=== PATIENT | female | born 1975 | race Caucasian/White ===

== ENCOUNTER → 2020-07-26 17:35 | Outpatient (CLI) | payer SELFPAY | PROVIDERS: Visit Provider Nurse Practitioner Obstetrics & Gynecology | DX: Z34.90 Encounter for supervision of normal pregnancy, unspecified, unspecified trimester (principal) | CPT/HCPCS: 86403 ==

== ENCOUNTER 2020-08-04 10:23 | Inpatient (IN) | payer SELFPAY ==
[2020-08-04] VITALS (9 sets, daily range): BP systolic 120–166; BP diastolic 74–89; PULSE 58–82; RESP 12–18; TEMP 36.3–36.9; O2SAT 78–100; BMI 28.0
[2020-08-04 11:21] LABS: Basophils % 0.1 % (0.1-2.0); Eosinophils % 0.6 % (0.1-12.0); Hematocrit 30.8 % (37.0-47.0); Hemoglobin 10.9 g/dL (12.2-16.2); Lymphocytes # 1.1 K/mm3 (0.7-4.5); Lymphocytes % 16.2 % (10-50); Mean Corpuscular HGB Conc 35.3 g/dL (31.8-35.4); Mean Corpuscular Hemoglobin 28.5 pg (27.0-31.2); Mean Corpuscular Volume 80.7 fl (81-99); Mean Platelet Volume 8.8 fl (7.4-10.4); Monocytes # 0.3 K/mm3 (0.1-1.0); Neutrophils # 5.2 K/mm3 (1.8-7.8); Neutrophils % 78.1 % (37.0-80.0); Platelet Count 174 K/mm3 (142-424); Red Blood Count 3.82 M/mm3 (4.20-5.40); Red Cell Distribution Width 14.9 % (11.5-17.5); White Blood Count 6.7 K/mm3 (4.8-10.8)
[2020-08-04 12:06] LABS: Coronavirus 19 IgG Antibody Positive (Negative); Coronavirus 19 IgM Antibody Negative (Negative)
--- NOTE | 2020-08-04 13:19 | HMH.PHAINT ---
MEDICATION RECONCILIATION COMPLETED ON PATIENT BY USING EXTERNAL FILL HISTORY FROM PHARMACY. -MARCIA HOLLAND, RAHATD
--- NOTE | 2020-08-04 13:21 | HMH.OPNOTE ---
Date of procedure: 08/04/20 Pre-op Diagnosis:: Term , chronic hypertension, previous section, previous history of uterine atony and hemorrhage, grand multiparity, advanced maternal age Post-op Diagnosis:: Term , chronic hypertension, previous section, history of uterine atony and hemorrhage, grand multiparity, advanced maternal age Procedure performed:: Repeat lower segment transverse section, B-ramsey suture Surgeon:: Mitchell Munoz MD Controller Operations And Hr Manager(s):: Deepa Villalba DATA GOVERNANCE ANALYST:: Other (Mark Esquivel) Anesthesia: spinal Estimated blood loss (mL): 600 Clinical Note:: She is 45-year-old 17 para 14 aborta 2 who was 37 and 1 weeks gestational age. She was having contractions yesterday and was seen in my office. Her blood pressure remained elevated despite being on nifedipine XL. She has had a previous section the was complicated by uterine atony and severe hemorrhage. She received 7 units of blood . After having discussed the risks and benefits she elected to have a repeat lower segment transverse section at term. Operative findings:: She delivered a liveborn male child at 12:50 PM on the afternoon of August 04, 2020. Baby had Apgars of 8 at 1 minute and 9 at 5 minutes. The lower uterine segment was extremely thin and there was just a thin layer of scar tissue overlying the amnion. The ovaries and tubes appeared normal. Operative note:: She was taken to the operating room where spinal anesthesia was found be adequate. She was prepped and draped in normal sterile fashion in the supine position with a leftward tilt. A Castañeda catheter was in the bladder. A Pfannenstiel skin incision was made with knife then carried through to the underlying layer of fascia with cautery. The fascia was opened in the midline with cautery and extended laterally using Kaufman scissors. Teresa clamps were applied to the superior aspect of the fascial incision which was tented up and the underlying rectus muscles dissected off using cautery. The Mathis clamps were then applied to the inferior aspect of the fascial incision which in a similar fashion was tented up and the underlying rectus muscles dissected off using cautery. The rectus muscles were then in the midline, the peritoneum identified, and entered sharply with Metzenbaum scissors. This incision was then extended superiorly and inferiorly with cautery. We had good visualization of the bladder inferiorly. The bladder peritoneum was then opened in the midline and extended laterally using Metzenbaum scissors. A bladder flap was created digitally. Transverse incision was made through the uterine muscle to the amnion. This incision was then extended laterally using fingers traction. The amnion was entered sharply with knife. There was clear amniotic fluid. The infant's head was then delivered atraumatically. This was followed by the anterior shoulder and the rest of the 's body atraumatically. The oropharynx and nasopharynx were bulb suctioned. The infant was then handed off to Dr. Funez who assigned Apgars of 8 at 1 minute and 9 at 5 minutes. Using gentle traction on the cord and countertraction on the fundus I was able to easily deliver the placenta intact. It had a normal three-vessel cord. The uterus was then cleared of clots and debris . The uterus was then exteriorized and the abdominal cavity. The uterine incision was then closed using running 0 Vicryl suture in a locked fashion. A second layer of the same suture was used to imbricate the first layer. The bladder peritoneum was then closed using running 2-0 Vicryl suture in a locked fashion. She had a history of uterine atony and was a grand multipara so we elected perform a B. Ramsey suture. Using #1 Vicryl suture I took a large bite anteriorly and then went over the top of the uterus. I took 2 bites posteriorly and then came back over the top of the uteru
--- NOTE | 2020-08-04 13:41 | HMH.ANESCL ---
[facility] Anesthesia Checklist - Structural Data Admitted From: Home Planned Operative Procedure/s: Consent for Planned Operative Procedure(s) Verified: Yes Verified Documents: Surgical Consent, History and Physical - NPO Status Verified Time NPO: 00:00 - Airway Assessment C-Spine Mobility Assessed: Yes TMJ Mobility Assessed: Yes Dentition: Good Dentition - Neurological Assessment Level of Consciousness: Awake, Alert - Anesthesia Plan Anesthesia Risk discussed: Yes Anesthesia Plan: Verified ASA Class: II Anesthesia Type: Spinal [facility] History *Have you ever received a pneumonia vaccine?: No *Have you received a flu vaccine this season?: No Anesthesia experience/problems:: None Other Surgeries: Yes: - *Social History Smoking Status: Never smoker Alcohol Intake: never Alcohol Intake Frequency:: other Substance Use Type: denies use *Occupational Status:: unemployed *Travel in the last 8 weeks: None Family Hx:: No significant family history Para: 13
--- NOTE | 2020-08-04 13:43 | P.PN_ITS ---
[facility] Anesthesia Record Part I Intake, IV Amount: 1,800 Estimated blood loss (mL): 600 Urine output (mL): 200 Blood Products used (#): none Blood Pressure: 120/74 SaO2: 78 Pulse Rate: 78 Respiratory Rate: 12 Temperature: 98.2 F Patient is:: Awake, Stable Stable to PACU at:: 13:30
--- NOTE | 2020-08-04 13:44 | P.CONPHA_ITS ---
[facility] Pharmacy VTE Monitoring - Patient Demographics Admission date: 08/04/20 Report Date: 08/04/20 Time: 13:45 Allergies/Adverse Reactions: Patient Allergies No Known Allergies Allergy (Verified 08/03/20 16:41) Height: 1.68 m Weight: 78.925 kg - VTE Risk Labs: VTE Related Lab Results Hgb 10.9 g/dL (12.2-16.2) L 08/04/20 11:00 Hct 30.8 % (37.0-47.0) L 08/04/20 11:00 Plt Count 174 K/mm3 (142-424) 08/04/20 11:00 - Prophylaxis VTE Prophylaxis Ordered?: Yes Types of VTE Prophylaxis: IPCS Thigh High Location of Applied Device: Bilateral Lower Extremeties
[2020-08-04 13:53] LABS: Microscopic,Cath URINE MICROSCOPIC (MICROSCOPIC)
[2020-08-04 13:55] LABS: Appearance,Urine/Cath CLEAR (Clear); Bilirubin,Cath Negative (Negative); Blood, Urine/Cath TRACE-I (Negative); Color,Urine/Cath YELLOW (Yellow); Glucose,Urine/Cath (UA) Negative (Negative); Ketones,Urine/Cath 3+ (Negative); Leukocyte Esterase,Cath Negative (Negative); Nitrate,Cath Negative (Negative); Protein,Urine/Cath Negative (Negative); Specific Gravity, Urine/Cath 1.015 (1.005-1.030); Urobilinogen,Cath 0.2 EU/dl (0.2)
[2020-08-04 14:11] LABS: RBC,Urine/Cath Occasional # /hpf (0-3); Squamous Epithelial Ur./Cath Occasional #/hpf (0-5)
[2020-08-05 00:11] VITALS: BP 129/82; PULSE 74; RESP 18; TEMP 36.7; O2SAT 100
[2020-08-05 04:14] VITALS: BP 132/84; PULSE 78; RESP 18; TEMP 36.6; O2SAT 97
[2020-08-05 07:40] LABS: Hematocrit 31.2 % (37.0-47.0); Hemoglobin 10.4 g/dL (12.2-16.2)
[2020-08-05 08:00] VITALS: BP 118/75; PULSE 77; RESP 20; TEMP 36.7; O2SAT 99
--- NOTE | 2020-08-05 08:52 | HMH.OBAPHP ---
OB - H&P: HPI Antepartum - History of Present Illness Chief complaint: Increased blood pressure, grand multiparity, previous section, con History of present illness: She is a 45-year-old 17 para 14 who is 37 and 5 weeks gestational age. She has had a previous section for twins and at the time of her twins delivery she had a severe hemorrhage requiring 7 units of blood. She would like to go ahead with a repeat lower segment transverse section and we discussed doing a B. Ramsey suture to prevent hemorrhage after her section. She also has had increased blood pressure and we have had to increase her blood pressure medicine from 30 mg of nifedipine to 60 mg of nifedipine daily. Her blood pressures have stabilized. We will plan to go ahead with a repeat lower segment transverse section because of her increased blood pressure and the fact that she is a grand multipara and has been having some contractions. - History of Present Criteria for establishing EDC:: based on LMP only care: limited care Ultrasounds: other Obstetrical complications: gestational hypertension Medical complications: none - Labs Blood type: other (She has Rh- blood) Rubella: unknown RPR/VDRL: unknown GBS status: negative HBsAG: unknown H History I have reviewed the patient's past medical history: Yes *Have you ever received a pneumonia vaccine?: No *Have you received a flu vaccine this season?: No Anesthesia experience/problems:: None Other Surgeries: Yes: - *Social History Smoking Status: Never smoker Alcohol Intake: never Alcohol Intake Frequency:: other Substance Use Type: denies use *Occupational Status:: unemployed *Travel in the last 8 weeks: None Family Hx:: No significant family history Para: 13 Review of Systems - Review of Systems Review of systems:: pertinent systems reviewed and negative unless documented below Meds Home Medications Medication Instructions Recorded Confirmed Type NIFEdipine [Nifedipine ER] 30 mg PO DAILY 08/04/20 08/04/20 History Allergies Allergy/AdvReac Type Severity Reaction Status Date / Time No Known Allergies Allergy Verified 08/03/20 16:41 OB - H&P: Exam - Physical Exam Vital signs: Temp Pulse Resp BP Pulse Ox 98.0 F 77 20 118/75 99 08/05/20 08:00 08/05/20 08:00 08/05/20 08:00 08/05/20 08:00 08/05/20 08:00 - Constitutional no acute distress - Routine HEENT Exam Head: Present: normocephalic Eye: Present: EOMI, PERRL ENT: Present: mucous membranes moist - Routine Neck Exam Present: supple, full ROM - Routine Respiratory Exam Absent: accessory muscle use (good air entry bilaterally), respiratory distress, wheezes, crackles - Routine Cardiovascular Exam Present: RRR. Absent: murmur - Routine Abdominal Exam Present: soft, normoactive bowel sounds. Absent: tenderness, distended, guarding - Routine Rectal Exam Patient deferred: visual exam, digital exam - Routine Exam Patient deferred: external exam, groin exam, perineal exam - Routine Extremities Exam Present: full ROM. Absent: cyanosis, edema - Routine Skin Exam Present: intact. Absent: cyanosis - Routine Neurological Exam Present: alert, oriented X3 - Routine Psychiatric Exam Present: normal affect OB - Results - Labs Labs: Short CBC 08/04/20 08/05/20 Range/Units 11:00 06:42 WBC 6.7 (4.8-10.8) K/mm3 Hgb 10.9 L 10.4 L (12.2-16.2) g/dL Hct 30.8 L 31.2 L (37.0-47.0) % Plt Count 174 (142-424) K/mm3 Urine 08/04/20 Range/Units 12:40 Urine Color Yellow (Yellow) Urine Appearance Clear (Clear) Urine pH 6.0 (5.0-8.5) Ur Specific [place] 1.015 (1.005-1.030) Urine Protein Negative (Negative) Urine Glucose (UA) Negative (Negative) OB - A/P Antepartum (1) Previous section Status: Acute (2) d
--- NOTE | 2020-08-05 08:57 | HMH.OBDCSM ---
General - General Admission date:: 08/04/20 Discharge date: 08/05/20 HPI - History of Present Illness History of present illness: She is a 45-year-old 17 now para 15 who is had a previous section. She had twins in her last and ended up having severe hemorrhage requiring 7 units of blood after her last . She wanted to have a controlled situation again this time with section. We discussed a B. Ramsey suture at the time of her section to prevent hemorrhage. She also has had increased blood pressure and she was started on nifedipine 30 mg XL. Hospital Course Hospital Course: On August 04, 2020 she underwent a repeat lower segment transverse section and delivered a liveborn male child at 12:50 PM. The baby weighed 7 pounds 6 ounces and had Apgars of 8 at 1 minute and 9 at 5 minutes. At the time of her section we did a B. Ramsey suture to prevent hemorrhage. She has done well and has remained afebrile with her hospitalization. Preoperatively her hemoglobin was 10.9 and postoperatively it is 10.5. Her pain is well controlled. She is taking ibuprofen and oxycodone. She would like to go home today. Her blood pressure was slightly elevated while hospitalized and I increased her nifedipine from 30 mg to 60 mg XL. Her blood pressures have stabilized with this dosage. She has Rh- blood and will receive RhoGam today. She is discharged home today. She will continue with Percocet 5/325 every 6 hours as needed for pain. She was given a prescription for 20 tablets. She will take ibuprofen as well. She will continue with vitamins and iron. She was given the usual instructions with respect to limiting her activity, driving and sexual activity. Her condition on discharge is stable and improved. Objective Vital signs: Temp Pulse Resp BP Pulse Ox 98.0 F 77 20 118/75 99 08/05/20 08:00 08/05/20 08:00 08/05/20 08:00 08/05/20 08:00 08/05/20 08:00 no acute distress - *Routine HEENT Exam Head: Present: normocephalic Eye: Present: EOMI, PERRL ENT: Present: mucous membranes moist Results Labs on day of discharge: Labs from last 24 hours 08/05/20 08/05/20 08/04/20 06:42 06:42 12:40 WBC RBC Hgb 10.4 L Hct 31.2 L MCV MCH MCHC RDW Plt Count MPV Neut % (Auto) Lymph % (Auto) [place] % (Auto) Eos % (Auto) Baso % (Auto) Neut # (Auto) Lymph # (Auto) [place] # (Auto) Eos # (Auto) Baso # (Auto) Urine Color Yellow Urine Appearance Clear Urine pH 6.0 Ur Specific [place] 1.015 Urine Protein Negative Urine Glucose (UA) Negative Urine Ketones 3+ Urine Blood Trace-i Urine Nitrate Negative Urine Bilirubin Negative Urine Urobilinogen 0.2 Ur Leukocyte Esterase Negative Urine RBC Occasional Urine WBC 3-5 Ur Squamous Epith Cells Occasional Urine Bacteria None SARS-CoV-2 IgG Ab (Rapid) SARS-CoV-2 IgM Ab (Rapid) Blood Type Pending Antibody Screen Pending Antibody Identification Screen Pending Baby's Rh Status Pending 08/04/20 08/04/20 08/04/20 11:00 11:00 11:00 WBC RBC Hgb Hct MCV MCH MCHC RDW Plt Count MPV Neut % (Auto) Lymph % (Auto) [place] % (Auto) Eos % (Auto) Baso % (Auto) Neut # (Auto) Lymph # (Auto) [place] # (Auto) Eos # (Auto) Baso # (Auto) Urine Color Urine Appearance Urine pH Ur Specific [place] Urine Protein Urine Glucose (UA) Urine Ketones Urine Blood Urine Nitrate Urine Bilirubin Urine Urobilinogen Ur Leukocyte Esterase Urine RBC Urine WBC Ur Squamous Epith Cells Urine Bacteria SARS-CoV-2 IgG Ab (Rapid) Positive A SARS-CoV-2 IgM Ab (Rapid) Negative Blood Type A Negative Antibody Screen Positive Antibo
--- NOTE | 2020-08-08 07:39 | P.PN_ITS ---
[facility] Anesthesia Record Part II Discharge Time: 14:10 Destination: Obstetric PACU nurse assessment reviewed?: Yes Patient Condition:: Good Anesthesia Complications:: None Swallowing reflex intact?: Yes Cyanosis?: No Blood Pressure: 155/86 Pulse Rate: 61 Temperature: 97.3 F Mental Status: Alert & Oriented Pain level:: 0 Nausea and/or vomitting:: None (0) Intake, IV Amount: 0
[2020-08-08 07:41] VITALS: BP 155/86; PULSE 61; TEMP 36.3
== END 2020-08-05 10:38 | disposition home or self-care (01) | DRG 788 ==
PROVIDERS: Admitting Provider Nurse Practitioner Obstetrics & Gynecology; Visit Provider Nurse Practitioner Obstetrics & Gynecology
PROC: 10D00Z1 Extraction of Products of Conception, Low, Open Approach (ICD-10-PCS; CPT 59514; principal; 2020-08-04 12:30)
DX: O10.02 Pre-existing essential hypertension complicating childbirth (principal); Z3A.37 37 weeks gestation of pregnancy; Z37.0 Single live birth; O34.211 Maternal care for low transverse scar from previous cesarean delivery; N85.8 Other specified noninflammatory disorders of uterus
CPT/HCPCS: 59514; 36415; 59025; 81001; 85014; 85018; 85025; 85461; 86328; 86850; 86870; 94761; G0283; J2790

== ENCOUNTER 2022-05-15 16:56 | Outpatient (CLI) | payer SELFPAY ==
[2022-05-15 17:47] VITALS: BP 160/99; PULSE 87; RESP 17; TEMP 36.6; O2SAT 97; BMI 27.7
== END 2022-05-15 17:34 | disposition home or self-care (01) ==
LOC: OBOUT 16:58 → OB 17:03 → OBOUT 18:01
PROVIDERS: PCP Nurse Practitioner Family; Visit Provider Nurse Practitioner Obstetrics & Gynecology
DX: O26.893 Other specified pregnancy related conditions, third trimester (principal); Z3A.35 35 weeks gestation of pregnancy
CPT/HCPCS: 96372; G0463

== ENCOUNTER 2022-05-16 16:57 | Outpatient (CLI) | payer SELFPAY | END 2022-05-16 17:23 | disposition home or self-care (01) | LOC: OBOUT 16:57 → OB 16:58 | PROVIDERS: PCP Nurse Practitioner Family; Visit Provider Nurse Practitioner Obstetrics & Gynecology | DX: O26.893 Other specified pregnancy related conditions, third trimester (principal); Z3A.35 35 weeks gestation of pregnancy | CPT/HCPCS: 96372 ==

== ENCOUNTER 2022-05-21 11:55 | Inpatient (IN) | payer SELFPAY ==
[2022-05-21] VITALS (24 sets, daily range): BP systolic 133–187; BP diastolic 79–100; PULSE 57–73; RESP 16–18; TEMP 36.3–36.7; O2SAT 95–99; BMI 27.2
[2022-05-21 13:11] LABS: Coronavirus 19, PCR Not Detected (NotDetected); Influenza A, PCR Not Detected (NotDetected); Influenza B, PCR Not Detected (NotDetected)
[2022-05-21 13:12] LABS: Basophils % 0.5 % (0.1-2.0); Eosinophils # 0.1 K/mm3 (0.0-0.4); Eosinophils % 1.1 % (0.1-12.0); Hematocrit 31.8 % (37.0-47.0); Hemoglobin 10.9 g/dL (12.2-16.2); Lymphocytes # 0.8 K/mm3 (0.7-4.5); Lymphocytes % 12.8 % (10-50); Mean Corpuscular HGB Conc 34.2 g/dL (31.8-35.4); Mean Corpuscular Hemoglobin 28.4 pg (27.0-31.2); Mean Platelet Volume 8.8 fl (7.4-10.4); Monocytes # 0.4 K/mm3 (0.1-1.0); Monocytes % 5.7 % (1.7-9.3); Neutrophils % 79.9 % (37.0-80.0); Platelet Count 226 K/mm3 (142-424); Red Blood Count 3.83 M/mm3 (4.20-5.40); Red Cell Distribution Width 14.5 % (11.5-17.5); White Blood Count 6.2 K/mm3 (4.8-10.8)
[2022-05-21 13:24] LABS: Anion Gap 10.5 mEq/L (5-15); Blood Urea Nitrogen 8 mg/dl (7-17); Calcium 8.4 mg/dl (8.4-10.2); Carbon Dioxide 20 mmol/L (22.0-30.0); Chloride 106 mmol/L (98-107); Creatinine Clearance Estimated 172 mL/min (50-200); Estimated Glomerular Filt Rate 133 ml/min (>60); GFR (African American) 161 ML/MIN (>60); Glucose 73 mg/dl (74-100); Potassium 3.5 mmoL/L (3.5-5.1); Sodium 133 mmol/L (136-145)
[2022-05-21 13:29] LABS: Magnesium 1.4 mg/dl (1.6-2.3)
--- NOTE | 2022-05-21 13:37 | EXP.HP ---
History of Present Illness *Admission Date: 05/21/22 *Reason for visit:: Severe PIH, chronic hypertension, grand multiparity, AMA *History of present illness: She is a 47-year-old 17 para 15 who has increased blood pressure throughout the last few weeks. I had started her on labetalol and gradually increased her dosage from 200 twice daily to 200 mg 3 times daily. She continues to have blood pressures in the 170/100 range. She feels a little jittery she says but otherwise no headache or scotomata. No epigastric pain. She has had previous hypertension in her last 2 pregnancies. Last was delivered at 37 weeks. She has had a C-sections in the past and is scheduled for another . Given the fact that her blood pressure is severely elevated today, we will go ahead and admit her and perform a later on this afternoon. [facility] Disclaimer: The information contained in this section may have been updated after the patient was seen, as this information can be updated by other users. Social History Smoking Status: Never smoker alcohol intake: never substance use type: denies use current occupational status: unemployed Travel in the last 8 weeks: None Review of Systems Review of Systems Review of systems:: pertinent systems reviewed and negative unless documented below Meds Home Medications and Allergies Home Medications Medication Instructions Recorded Confirmed Type labetalol 200 mg tablet 200 mg PO TID 05/21/22 History New Prescriptions to Start Prescriptions: Allergies Allergy/AdvReac Type Severity Reaction Status Date / Time No Known Allergies Allergy Verified 05/21/22 11:15 Exam Data for Last 24 hours Vital signs and Labs for Last 24 Hours: Laboratory Results - last 24 hr 05/21/22 12:49: SARS-CoV-2 (PCR) Not detected, Influenza A Untype (PCR) Not detected, Influenza Type B (PCR) Not detected 05/21/22 12:55: WBC 6.2, RBC 3.83 L, Hgb 10.9 L, Hct 31.8 L, MCV 83.0, MCH 28.4, MCHC 34.2, RDW 14.5, Plt Count 226, MPV 8.8, Neut % (Auto) 79.9, Lymph % (Auto) 12.8, [place] % (Auto) 5.7, Eos % (Auto) 1.1, Baso % (Auto) 0.5, Neut # (Auto) 5.0, Lymph # (Auto) 0.8, [place] # (Auto) 0.4, Eos # (Auto) 0.1, Baso # (Auto) 0.0 05/21/22 12:55: Crossmatch (AHG) See Detail 05/21/22 12:55: Sodium 133 L, Potassium 3.5, Chloride 106, Carbon Dioxide 20 L, Anion Gap 10.5, BUN 8, Creatinine 0.50 L, Estimated Creat Clear 172, Estimated GFR 133, Est GFR ( Amer) 161, Glucose 73 L, Calcium 8.4 05/21/22 12:55: Magnesium 1.4 L I & O for Last 24 hours: Intake & Output 05/19/22 05/20/22 05/21/22 05/22/22 11:59 11:59 11:59 11:59 Weight 169 lb Constitutional Constitutional: no acute distress *Routine HEENT Exam Head: Present normocephalic Eye: Present EOMI and PERRL ENT: Present mucous membranes moist *Routine Neck Exam Neck: Present supple; Absent lymphadenopathy *Routine Respiratory Exam Respiratory: Present CTA bilaterally *Routine Cardiovascular Exam Cardiovascular: Present RRR *Routine Abdominal Exam Abdominal: Present soft and normoactive bowel sounds; Absent tenderness *Routine Rectal Exam Rectal:: deferred *Routine Genitalia Exam Genitalia:: deferred *Routine Extremities Exam Extremities: Absent cyanosis, clubbing or edema *Routine Skin Exam Skin: Present warm; Absent rash *Routine Neurological Exam Neurological: Present alert and oriented X3 Assessment and Plan *Assessment and plan (1) Advanced maternal age in multigravida: Status: Acute Category: Medical Code(s): O09.529 - Supervision of elderly multigravida, unspecified trimester (2) Previous section: Status: Acute Category: Surgical Code(s): Z98.891 - History of uterine scar from previous surgery (3) Grand multiparity: Status: Acute Category: Medical Code(s): Z64.1 - Problems related to multipa
[2022-05-21 14:51] LABS: Alanine Aminotransferase 14 U/L (12-78); Aspartate Amino Transferase 24 U/L (14-36); Uric Acid 6.6 mg/dl (2.5-6.2)
[2022-05-21 15:05] LABS: Fibrinogen 383 mg/dL (229.9-363.5); Prothrombin Time 9.8 seconds (10.1-12.5)
[2022-05-21 15:06] LABS: D-Dimer 1.14 ug/mL (0.0-0.5)
--- NOTE | 2022-05-21 15:36 | P.PN_ITS ---
[facility] Disclaimer: The information contained in this section may have been updated after the patient was seen, as this information can be updated by other users. Social History Smoking Status: Never smoker alcohol intake: never substance use type: denies use current occupational status: unemployed Travel in the last 8 weeks: None [facility] Anesthesia Checklist Patient Identification Patient Identification: Arm Band and Verbal (Name & ) Structural Data Admitted From: Inpatient Planned Operative Procedure/s: C section Verified Documents: Surgical Consent NPO Status Verified Time NPO: 10:00 Chart Verification Results Verified: CBC Airway Assessment C-Spine Mobility Assessed: Yes TMJ Mobility Assessed: Yes Dentition: Good Dentition Neurological Assessment Level of Consciousness: Awake, Alert and Appropriate Anesthesia Plan ASA Class: III Anesthesia Type: Spinal
[2022-05-21 16:24] LABS: Cord Blood PH 7.37 (7.35-7.45)
--- NOTE | 2022-05-21 16:49 | EXP.OP.NOTE ---
Date of procedure: 05/21/22 Pre-op Diagnosis:: Previous section, history of uterine atony, advanced maternal age, severe -induced hypertension, grand multiparity Post-op Diagnosis:: Previous section, history of uterine atony, advanced maternal age, severe -induced hypertension, grand multiparity Procedure performed:: Repeat lower segment transverse section, B-ahumada suture Surgeon:: Mitchell Munoz MD Radiation Technician(s):: Dr. Whitehead FIELD MACHINIST:: Mikey Mead Anesthesia: spinal Estimated blood loss (mL): 500 Clinical Note:: She is a 47-year-old 17 para 14 who was 36 and 3 weeks gestational age. She has had increasing blood pressure. I had started her on labetalol 200 mg twice daily and then increased it to 3 times daily and despite this her blood pressures were in the 170s over 100 range. As result of that she was admitted and started on IV magnesium sulfate as well as IV labetalol to try and control her blood pressures. We elected to perform a section today as result of this. The risks and benefits of surgery discussed the patient has been. Operative findings:: She delivered a liveborn male child at 4:19 PM in the evening of May 21, 2022. Baby had Apgars of 8 at 1 minute and 8 at 5 minutes. pH was 7.34. Her uterine wall was extremely thin. There did not seem to be any musculature at all. The fascia was intact but the underlying tissue was just peritoneum with no abdominal muscle present. The uterus itself appeared normal. The lower segment was quite thin as result of her previous sections. Operative note:: She was taken to the operating room where spinal anesthesia was found be adequate. She was prepped and draped in normal sterile fashion in the supine position. A Castañeda catheter was in the bladder. A Pfannenstiel skin incision was made with knife then carried through to the underlying layer of fascia with cautery. The fascia was opened in the midline with cautery and extended laterally using Kaufman scissors. [place] clamps were applied to the superior aspect of the fascial incision which was tented up and the underlying rectus muscles dissected off using cautery. The Clendenin clamps were then applied to the inferior aspect of the fascial incision which in a similar fashion was tented up and the underlying rectus muscles dissected off using cautery. The rectus muscles were absent. The peritoneum identified, and entered sharply. An Jones retractor was then inserted into the abdominal cavity. Transverse incision was made through the uterine muscle above the bladder flap to the amnion. This incision was then extended superiorly and inferiorly using the fingers as traction. The amnion was entered sharply with knife. There was clear amniotic fluid. The infant's head was then delivered atraumatically. A loose nuchal cord was then reduced. This was followed by the anterior shoulder and the rest of the 's body atraumatically. The oropharynx and nasopharynx were bulb suctioned. The baby cried spontaneously. The cord was then doubly clamped and cut. The was then handed off to Dr. Lowe who assigned Apgars of 8 at 1 minute and 8 at 5 minutes. We then obtained cord blood as well as cord pH. The pH was 7.34. Using gentle traction on the cord and fundal massage I was able to easily deliver the placenta intact. It had a normal three-vessel cord. The uterus was then cleared of clots and debris . The uterine incision was then closed using running 0 Vicryl suture in a locked fashion. A second layer of the same suture was used to imbricate the first layer. I then performed a B-ahumada suture with a #1 Vicryl on a large protect point needle. I took a bite anteriorly and then went over the top of the uterus and took 2 bites posteriorly. I then came back again anteriorly and took another bite anteriorly. The suture was then cinched down and tied. The gutters and cul-de-sac were then cleared of clots
--- NOTE | 2022-05-21 16:52 | EXP.ANES.I ---
[facility] Anesthesia Record Part I Anesthesia Record I Intake, IV Amount: 1,000 Estimated blood loss (mL): 500 Urine output (mL): 300 Blood Pressure: 145/80 SaO2: 95 Pulse Rate: 68 Respiratory Rate: 17 Temperature: 97.3 F Patient is:: Awake Stable to PACU at:: 16:45
--- NOTE | 2022-05-21 17:36 | PC.NURSE ---
171-MD at bedside, fundal massage performed per MD, no further orders, pt's at bedside with pt per pt's request, vss, pt stable -notified MD of QBL, no further orders 1711-detailed report called to NeoRN 1715-pt transported to OB room 278 via hospital bed w/alma rails up and left in care of MICHELE Larson with bed locked in lowest position, vss, pt stable
--- NOTE | 2022-05-21 17:42 | SUR.OPER ---
1619-viable infant male born at this time
[2022-05-21 17:56] LABS: Microscopic, Urine URINE MICROSCOPIC (MICROSCOPIC)
[2022-05-21 18:03] LABS: Appearance,Urine CLEAR (Clear); Bilirubin,Urine Negative (Negative); Blood, Urine Negative (Negative); Color,Urine YELLOW (Yellow); Glucose,Urine (UA) Negative (Negative); Ketones,Urine TRACE (Negative); Leukocyte Esterase,Urine Negative (Negative); Nitrate,Urine Negative (Negative); Protein,Urine Negative (Negative); Urobilinogen,Urine 0.2 EU/dl (0.2)
[2022-05-21 18:29] LABS: Amphetamine/Metha Screen,Urine Negative ng/ml (<1000)
[2022-05-21 18:30] LABS: Barbiturates Screen,Urine Negative ng/ml (<200); Benzodiazepines Screen,Urine Negative ng/ml (<200)
[2022-05-21 18:31] LABS: Cannabinoid Screen,Urine Negative ng/ml (<50)
[2022-05-21 18:32] LABS: Cocaine Screen,Urine Negative ng/ml (<300); Methadone Screen,Urine Negative ng/ml (<300)
[2022-05-21 18:33] LABS: Opiate Screen,Urine Negative ng/ml (<300); Phencyclidine Screen,Urine Negative ng/ml (<25)
[2022-05-22] VITALS (10 sets, daily range): BP systolic 93–145; BP diastolic 50–85; PULSE 61–69; RESP 17–18; TEMP 36.3–37.1; O2SAT 96–98
--- NOTE | 2022-05-22 06:46 | PC.NURSE ---
Patient reports receiving RoGHAM during her 28 week . [facility] requesting due to positive antibody screen.
[2022-05-22 07:30] LABS: Hematocrit 26.4 % (37.0-47.0)
--- NOTE | 2022-05-22 07:38 | P.PNANES_ITS ---
[facility] Anesthesia Record Part II Anesthesia Record Part II Discharge Time: 17:15 Destination: Surgical Day Care (OP Surgery) PACU nurse assessment reviewed?: Yes Patient Condition:: Good Anesthesia Complications:: None Swallowing reflex intact?: Yes Cyanosis?: No Blood Pressure: 145/83 Pulse Rate: 61 Temperature: 97.4 F Mental Status: Alert & Oriented Pain level:: 0 Nausea and/or vomitting:: None Intake, IV Amount: 0
[2022-05-22 07:48] LABS: Hemoglobin 9.1 g/dL (12.2-16.2)
[2022-05-22 07:51] LABS: Magnesium 5.7 mg/dl (1.6-2.3)
--- NOTE | 2022-05-22 10:54 | HMH.PHAINT1 ---
Pharmacy Intervention Comments: MEDICATION RECONCILIATION COMPLETED ON PATIENT USING EXTERNAL FILL HISTORY FROM PHARMACY. -MARCIA HOLLAND, RAHATD
[2022-05-23] VITALS: BP 136/67; PULSE 67; RESP 18; TEMP 36.8
[2022-05-23 04:00] VITALS: BP 134/75; PULSE 70; RESP 18; TEMP 36.6; O2SAT 97
[2022-05-23 06:42] VITALS: BP 126/73; PULSE 68
[2022-05-23 08:06] VITALS: BP 102/55; PULSE 75; RESP 18; TEMP 36.8; O2SAT 98
--- NOTE | 2022-05-23 09:24 | EXP.DC.SUM ---
General Admission date:: 05/21/22 Discharge date: 05/23/22 HPI HPI HPI: She is a 47-year-old 17 para 15 who has increased blood pressure throughout the last few weeks. I had started her on labetalol and gradually increased her dosage from 200 twice daily to 200 mg 3 times daily. She continues to have blood pressures in the 170/100 range. She feels a little jittery she says but otherwise no headache or scotomata. No epigastric pain. She has had previous hypertension in her last 2 pregnancies. Last was delivered at 37 weeks. She has had a C-sections in the past and is scheduled for another . Given the fact that her blood pressure is severely elevated today, we will go ahead and admit her and perform a later on this afternoon. Hospital Course Hospital Course Hospital Course: On May 21, 2022 she underwent a repeat lower segment transverse section. She delivered a liveborn male child at 4:19 PM in the afternoon. The baby weighed 6 pounds 11 ounces and was 19 inches long. He had Apgars of 8 at 1 minute and 9 at 5 minutes. She has done well and has remained afebrile throughout her hospitalization. She is eating and drinking and ambulating. Her pain is well controlled. Her blood pressure has remained low . She did receive 24 hours of magnesium sulfate. She has not required her labetalol since her blood pressures are in the 100 210/60-70 range. Heart rate is normal. Her hemoglobin is 9.1. She has a negative blood and she has received RhoGAM. She is rubella unknown and group B streptococcus unknown. She denies any fever or chills. She denies any heavy bleeding. She will be discharged home today to follow-up with me in approximately 2 weeks time. She will continue with vitamins and iron. She was given a prescription for Percocet 5/325 number 20 tablets. She was given the usual instructions with respect to limiting her activity, driving and sexual activity. Her condition on discharge is stable and improved. Exam Data for Last 24 hours Vital signs and Labs for Last 24 Hours: Temp Pulse Resp BP Pulse Ox 98.2 F 75 18 102/55 L 98 05/23/22 08:06 05/23/22 08:06 05/23/22 08:06 05/23/22 08:06 05/23/22 08:06 Laboratory Results - last 24 hr 05/22/22 07:17: Screen Negative, Rhogam Infusion Rhogam release I & O for Last 24 hours: Intake & Output 05/20/22 05/21/22 05/22/22 05/23/22 11:59 11:59 11:59 11:59 Intake Total 1075 / 1075 Output Total 3375 / 3375 1000 / 1000 Balance -2300 / -2300 -1000 / -1000 Weight 169 lb 168 lb 15.996 oz Constitutional Constitutional: no acute distress *Routine HEENT Exam Head: Present normocephalic *Routine Respiratory Exam Respiratory: Present normal respiratory effort; Absent accessory muscle use *Routine Extremities Exam Extremities: Absent calf tenderness Results Data Completed and Pending Labs on day of discharge: Labs from last 24 hours 05/22/22 07:17 Screen Negative Rhogam Infusion Rhogam release DS: Diagnosis Discharge Diagnosis (1) Advanced maternal age in multigravida: Status: Acute (2) Previous section: Status: Acute (3) Grand multiparity: Status: Acute (4) Gestational hypertension: Status: Acute Meds Home Medications and Allergies Home Medications Medication Instructions Recorded Confirmed Type oxycodone-acetaminophen 5 mg-325 1 tab PO Q6H PRN severe pain. #20 05/23/22 Rx mg tablet (Percocet) tabs New Prescriptions to Start Prescriptions: oxycodone-acetaminophen [Percocet] Mitchell Munoz Allergies Allergy/AdvReac Type Severity Reaction Status Date / Time No Known Allergies Allergy Verified 05/21/22 11:15 Discharge Plan Disposition Patient Disposition: Home, Self-Care Discharge Order Discharge Orders: Discharge Order (Routine); Ordered 0
[2022-05-23 09:27] VITALS: RESP 17
== END 2022-05-23 10:43 | disposition home or self-care (01) | DRG 788 ==
LOC: OBOUT 16:59 → OB 16:59
PROVIDERS: Admitting Provider Nurse Practitioner Obstetrics & Gynecology; PCP Nurse Practitioner Family; Visit Provider Nurse Practitioner Obstetrics & Gynecology
PROC: 10D00Z1 Extraction of Products of Conception, Low, Open Approach (ICD-10-PCS; CPT 59514; principal; 2022-05-21 16:00)
DX: O13.4 Gestational [pregnancy-induced] hypertension without significant proteinuria, complicating childbirth (principal); Z3A.36 36 weeks gestation of pregnancy; Z37.0 Single live birth; Z23 Encounter for immunization; O75.89 Other specified complications of labor and delivery; O69.81X0 Labor and delivery complicated by cord around neck, without compression, not applicable or unspecified; O34.211 Maternal care for low transverse scar from previous cesarean delivery; N85.8 Other specified noninflammatory disorders of uterus; O60.14X0 Preterm labor third trimester with preterm delivery third trimester, not applicable or unspecified
CPT/HCPCS: 59514; 96372; 90384; 36415; 59025; 80048; 80305; 81001; 82800; 83735; 84450; 84460; 84550; 85014; 85018; 85025; 85378; 85384; 85461; 85610; 85730; 86850; 86870; 94761; C9803; G0283; J2405; J2790; U0003; U0005